=== PATIENT | male | born 1990 | race Caucasian/White ===

== ENCOUNTER 2019-03-08 22:07 | Emergency (ER) | payer OTHER ==
[~2019-03-08] VITALS: Ht 177.8 cm; Wt 75.0 kg
[2019-03-08 22:18] VITALS: BP 120/85
[2019-03-08] MEDS ORDERED: CHLO118L TOP (23:58)
[2019-03-08] MEDS ORDERED: DOXY100C2 PO (23:58)
[2019-03-08] MEDS ORDERED: SULF1TAB49 PO (23:58)
== END 2019-03-09 00:24 | disposition home or self-care (01) ==
LOC: ER 22:08
DX: L02.415 Cutaneous abscess of right lower limb (principal)
CPT/HCPCS: 99283